=== PATIENT | female | born 2000 | race Two or more races ===

== ENCOUNTER 2019-03-27 16:59 | Emergency (ER) | payer SELFPAY ==
[~2019-03-27] VITALS: Ht 152.4 cm; Wt 49.0 kg
--- NOTE | 2019-03-27 17:15 | NUR ---
Pt ambulatory to ED from home accomp by . sent by to r/o ectopic . Pos test Sat. cramping 2 weeks. no spotting. last period end of January. +breast tenderness. G1PO. no pmhx. cramps come and go. denies pain at this moment. given call [facility]. awaiting md.
[2019-03-27 17:40] LABS: BASOPHILS # (AUTO) 0.01 x10^3/uL (0-0.3); BASOPHILS % (AUTO) 0 % (0-1); EOSINOPHILS % (AUTO) 2 % (1-7); LYMPHOCYTES # (AUTO) 2.04 x10^3/uL (1-6.1); LYMPHOCYTES % (AUTO) 29 % (22-44); MD NO; MEAN CORPUSCULAR HEMOGLOBIN 28.9 pg (27.0-34.8); MEAN CORPUSCULAR HGB CONC 32.7 g/dL (32.4-35.8); MEAN CORPUSCULAR VOLUME 88.4 fL (80-100); MEAN PLATELET VOLUME 7.9 fL (7.4-10.4); MONOCYTES % (AUTO) 9 % (2-9); NEUTROPHILS # (AUTO) 4.26 x10^3/uL (1.8-8.0); NEUTROPHILS % (AUTO) 61 % (42-75); PLATELET COUNT 307 x10^3/uL (130-400); RED BLOOD COUNT 4.44 x10^6/uL (3.82-5.3); RED CELL DISTRIBUTION WIDTH 13.7 % (9.6-15.2)
[2019-03-27 17:46] LABS: MICROSCOPIC NOT IND
[2019-03-27 17:49] LABS: CULTURE INDICATED? NO
[2019-03-27 17:53] LABS: ANION GAP 3 mmol/L (5-15); CALCIUM 9.1 mg/dL (8.5-10.1); CHLORIDE 107 mmol/L (98-107); CREATININE 0.69 mg/dL (0.55-1.02)
[2019-03-27 18:25] VITALS: BP 95/55
--- NOTE | 2019-03-27 18:25 | NUR ---
pt back from us. vss. no complaints at this time. awaiting resutls. call [facility] in reach.
== END 2019-03-27 19:04 | disposition home or self-care (01) ==
LOC: ED 18:58
DX: O26.891 Other specified pregnancy related conditions, first trimester (principal); R10.30 Lower abdominal pain, unspecified; Z3A.01 Less than 8 weeks gestation of pregnancy
CPT/HCPCS: 36415; 76801; 80048; 81003; 82040; 84702; 85025; 86901; 99284

== ENCOUNTER 2019-04-01 14:15 | Emergency (ER) | payer SELFPAY ==
[~2019-04-01] VITALS: Ht 160 cm; Wt 50.6 kg
--- NOTE | 2019-04-01 14:39 | NUR ---
PT AMBULATORY TO ROOM 1. PT STATES SHE HAD HER LMP AT THE END OF JANUARY AND HAS NOT HAD PERIOD SINCE. PT STATES SHE HAS NOT HAD VB BUT DID HAVE CRAMPING. CAME TO ED AT 4 WEEKS AND WAS TOLD SHE WAS TOO EARLY TO SEE ANYTHING ON US. PT STATES SHE HAD POSITIVE TEST. WAS TOLD TO COME BACK TO ASSESS FOR VIABLE VS ECTOPIC. PT RESTING ON GURNEY. NADN. MONITORS APPLIED. WARM BLANKET PROVIDED.
--- NOTE | 2019-04-01 14:49 | NUR ---
PT RESTING ON GURNEY. NADN. AMAYA.
--- NOTE | 2019-04-01 15:10 | NUR ---
PT TAKEN FOR US IN STABLE CONDITION.
--- NOTE | 2019-04-01 15:56 | NUR ---
PT CHART REVIEWED AND PLACED FOR RECHECK.
[2019-04-01 15:59] VITALS: BP 106/48
--- NOTE | 2019-04-01 16:00 | NUR ---
PT RESTING ON GURNEY. NADN. AMAYA.
== END 2019-04-01 16:34 | disposition left against medical advice (07) ==
LOC: ED 15:30
DX: Z32.01 Encounter for pregnancy test, result positive (principal)
CPT/HCPCS: 36415; 76801; 84702; 99284

== ENCOUNTER 2019-04-16 21:37 | Emergency (ER) | payer OTHER ==
[~2019-04-16] VITALS: Ht 154.9 cm; Wt 51.4 kg
[2019-04-16 22:29] LABS: MICROSCOPIC AUTO
[2019-04-16 22:30] LABS: CULTURE INDICATED? YES
[2019-04-16 22:30] LABS: BASOPHILS # (AUTO) 0.06 x10^3/uL (0-0.3); BASOPHILS % (AUTO) 1 % (0-1); EOSINOPHILS # (AUTO) 0.11 x10^3/uL (0-0.8); EOSINOPHILS % (AUTO) 1 % (1-7); LYMPHOCYTES # (AUTO) 2.31 x10^3/uL (1-6.1); LYMPHOCYTES % (AUTO) 26 % (22-44); MD NO; MEAN CORPUSCULAR HGB CONC 32.4 g/dL (32.4-35.8); MEAN CORPUSCULAR VOLUME 89.6 fL (80-100); MEAN PLATELET VOLUME 8.1 fL (7.4-10.4); MONOCYTES # (AUTO) 0.74 x10^3/uL (0-1.4); MONOCYTES % (AUTO) 8 % (2-9); NEUTROPHILS % (AUTO) 64 % (42-75); PLATELET COUNT 299 x10^3/uL (130-400); RED BLOOD COUNT 4.14 x10^6/uL (3.82-5.3); RED CELL DISTRIBUTION WIDTH 13.3 % (9.6-15.2)
[2019-04-16 22:44] LABS: ALANINE AMINOTRANSFERASE 30 U/L (12-78); ALBUMIN 3.3 g/dL (3.4-5.0); ANION GAP 5 mmol/L (5-15); CALCIUM 8.4 mg/dL (8.5-10.1); CHLORIDE 108 mmol/L (98-107); CREATININE 0.62 mg/dL (0.55-1.02)
--- NOTE | 2019-04-16 22:52 | NUR ---
PT C/O RLQ PAIN AND BLOOD IN URINE. PT DENIES ANY OTHER C/O. PT 14 WEEKS , UNKNOWN TO PT. US SHERINE, LABS DRAWN. FAMILY AT FOR SUPPORT. PT CONNECTED TO MONITORING, CALL LIGHT WITHIN REACH.
[2019-04-16 23:01] LABS: ALKALINE PHOSPHATASE 47 U/L (45-117); BILIRUBIN,TOTAL 0.3 mg/dL (0.2-1.0); TOTAL PROTEIN 6.8 g/dL (6.4-8.2)
--- NOTE | 2019-04-17 00:10 | NUR ---
AMEND: PT 7 WEEKS .
[2019-04-17 00:17] VITALS: BP 95/44
== END 2019-04-17 00:19 | disposition home or self-care (01) ==
LOC: ED 22:39
DX: O46.91 Antepartum hemorrhage, unspecified, first trimester (principal); Z3A.01 Less than 8 weeks gestation of pregnancy
CPT/HCPCS: 36415; 76801; 80053; 81001; 83690; 84702; 85025; 86901; 87086; 99284

== ENCOUNTER 2019-11-22 11:32 | Outpatient (CLI) | payer MEDICAID ==
[~2019-11-22] VITALS: Ht 172.7 cm; Wt 61.2 kg
[2019-11-22 11:53] VITALS: BP 106/62
[2019-11-22 12:58] LABS: MICROSCOPIC INDICATED
[2019-11-22] MEDS ORDERED: OMEPRAZOLE 20 MG CAPSULE.DR PO ONE (13:00)
== END 2019-11-22 14:05 | disposition home or self-care (01) ==
LOC: LDOP 11:32
PROVIDERS: ATTEND Obstetrics & Gynecology
DX: O26.893 Other specified pregnancy related conditions, third trimester (principal); R10.9 Unspecified abdominal pain; Z3A.39 39 weeks gestation of pregnancy
CPT/HCPCS: 59025; 81001; 87086

== ENCOUNTER 2019-11-25 14:06 | Outpatient (CLI) | payer MEDICAID ==
[~2019-11-25] VITALS: Ht 152.4 cm; Wt 64.0 kg
== END 2019-11-25 15:48 | disposition home or self-care (01) ==
LOC: LDOP 14:06
PROVIDERS: ATTEND Obstetrics & Gynecology
DX: R10.9 Unspecified abdominal pain (principal)
CPT/HCPCS: 59025

== ENCOUNTER 2019-11-25 23:40 | Inpatient (IN) | payer MEDICAID ==
[~2019-11-25] VITALS: Ht 152.4 cm; Wt 70.0 kg
[2019-11-25] MEDS ORDERED: D5%-LACTATED RINGERS 1,000 ML IV SCH (23:54)
[2019-11-25] MEDS ORDERED: OXYTOCIN 30U/ 0.9% NaCL 500ML 500 ML IV ONE (23:54)
[2019-11-26] MEDS ORDERED: FENTANYL PF 100 MCG/2ML IV PRN
[2019-11-26] MEDS ORDERED: TERBUTALINE 1 MG/ML, 1ML SQ PRN
[2019-11-26] MEDS ORDERED: ONDANSETRON 2MG/ML, 2ML IVPush PRN
[2019-11-26] MEDS ORDERED: CALCIUM CARBONATE 500 MG TAB.CHEW PO PRN
[2019-11-26] MEDS ORDERED: TERBUTALINE 1 MG/ML, 1ML IVPush PRN
[2019-11-26] MEDS ORDERED: LIDOCAINE 1%, 20ML ONE (00:06)
[2019-11-26] MEDS ORDERED: NEWBORN KIT ONE (00:06)
[2019-11-26] MEDS ORDERED: MISOPROSTOL 200 MCG TABLET ONE (00:06)
[2019-11-26] MEDS ORDERED: OXYTOCIN 30U/ 0.9% NaCL 500ML 500 ML ONE ×3 (00:06→06:33)
[2019-11-26 00:22] LABS: BASOPHILS % (AUTO) 0 % (0-1); EOSINOPHILS # (AUTO) 0.03 x10^3/uL (0-0.4); EOSINOPHILS % (AUTO) 0 % (1-7); LYMPHOCYTES # (AUTO) 1.41 x10^3/uL (1-3.4); LYMPHOCYTES % (AUTO) 11 % (22-44); MD NO; MEAN CORPUSCULAR HGB CONC 32.2 g/dL (32.4-35.8); MEAN CORPUSCULAR VOLUME 77.6 fL (80-100); MEAN PLATELET VOLUME 7.9 fL (7.4-10.4); MONOCYTES # (AUTO) 0.72 x10^3/uL (0.2-0.8); MONOCYTES % (AUTO) 5 % (2-9); NEUTROPHILS # (AUTO) 11.01 x10^3/uL (1.8-6.8); NEUTROPHILS % (AUTO) 84 % (42-75); PLATELET COUNT 340 x10^3/uL (130-400); RED BLOOD COUNT 4.14 x10^6/uL (3.82-5.3); RED CELL DISTRIBUTION WIDTH 14.5 % (9.6-15.2)
[2019-11-26] MEDS ORDERED: FENTANYL PF 100 MCG/2ML ONE ×4 (01:24→05:59)
[2019-11-26] MEDS: FENTANYL PF 100 MCG/2ML IVPush PRN ×4 (01:26→06:02)
[2019-11-26] MEDS: LACTATED RINGERS 1,000 ML IV SCH ×2 (02:16)
[2019-11-26] MEDS ORDERED: IBUPROFEN 800 MG TABLET ONE (06:25)
[2019-11-26] MEDS: IBUPROFEN 800 MG TABLET PO PRN ×2 (06:32→21:00)
[2019-11-26] MEDS: OXYTOCIN 30U/ 0.9% NaCL 500ML 500 ML IV SCH ×2 (06:41→16:41)
[2019-11-26] MEDS ORDERED: ONDANSETRON 2MG/ML, 2ML IV PRN (07:00)
[2019-11-26] MEDS ORDERED: GLYCERIN ADULT SUPP PR PRN (07:00)
[2019-11-26] MEDS ORDERED: METHYLERGONOVINE 0.2 MG/ML IM PRN (07:00)
[2019-11-26] MEDS ORDERED: MISOPROSTOL 200 MCG TABLET PR PRN (07:00)
[2019-11-26] MEDS ORDERED: BISACODYL 10 MG SUPP PR PRN (07:00)
[2019-11-26] MEDS ORDERED: SIMETHICONE 80 MG CHEW TAB PO PRN (07:00)
[2019-11-26] MEDS ORDERED: HYDROcodone/APAP 5/325 TABLET ONE (07:50)
[2019-11-26] MEDS: PRENATAL VIT/IRON/FA 1 EACH TABLET PO SCH (09:00)
[2019-11-26 10:00] VITALS: BP_SYST 102; BP_SYST 92; BP_DIAS 52; BP_DIAS 66
[2019-11-26] MEDS: HYDROcodone/APAP 5/325 TABLET PO PRN ×2 (13:39→21:01)
[2019-11-26 13:58] LABS: MEAN CORPUSCULAR HEMOGLOBIN 25.2 pg (27.0-34.8); MEAN CORPUSCULAR HGB CONC 32.3 g/dL (32.4-35.8); MEAN PLATELET VOLUME 7.8 fL (7.4-10.4); PLATELET COUNT 299 x10^3/uL (130-400); RED CELL DISTRIBUTION WIDTH 14.9 % (9.6-15.2)
[2019-11-26 14:18] LABS: MD YES
[2019-11-26 14:23] LABS: BAND#(MANUAL) 1.04 x10^3/uL; BANDS%(MANUAL) 7 % (0-7); LYMPH#(MANUAL) 1.19 x10^3/uL (1-3.4); LYMPHS% (MANUAL) 8 % (22-44); METAMYELOCYTES% (MANUAL) 2 % (0-1); MONOS#(MANUAL) 1.04 x10^3/uL (0.3-2.7); MONOS% (MANUAL) 7 % (2-9); SEG#(MANUAL) 11.32 x10^3/uL (1.8-6.8); SEGS% (MANUAL) 76 % (42-75)
[2019-11-26 14:24] LABS: MICROCYTOSIS 1+; OVALOCYTES 1+; POLYCHROMASIA 1+
[2019-11-26 14:25] LABS: <PLATELET ESTIMATE> ADEQUATE; <PLT MORPHOLOGY> NORMAL PLT MORPH
[2019-11-26 16:13] VITALS: BP 101/64
[2019-11-26 20:45] VITALS: BP 92/59
[2019-11-26] MEDS: DOCUSATE 100 MG CAPSULE PO PRN (21:00)
[2019-11-27 00:10] VITALS: BP 91/60
[2019-11-27] MEDS: OXYTOCIN 30U/ 0.9% NaCL 500ML 500 ML IV SCH (02:41)
[2019-11-27 04:30] VITALS: BP 91/60
[2019-11-27] MEDS: IBUPROFEN 800 MG TABLET PO PRN (05:08)
[2019-11-27 07:42] VITALS: BP 86/52
[2019-11-27] MEDS: DOCUSATE 100 MG CAPSULE PO PRN (11:40)
[2019-11-27] MEDS: HYDROcodone/APAP 5/325 TABLET PO PRN (11:40)
[2019-11-27] MEDS: PRENATAL VIT/IRON/FA 1 EACH TABLET PO SCH (11:40)
[2019-11-27] MEDS ORDERED: IBUP-1222 PO (17:15)
[2019-11-27] MEDS ORDERED: FERR-46 PO (17:16)
== END 2019-11-27 18:20 | disposition home or self-care (01) | DRG 807 ==
LOC: LDOP 23:40 → LDIP 23:56 → 2NW 11-26 09:38
PROVIDERS: ADMIT Obstetrics & Gynecology; ATTEND Obstetrics & Gynecology
PROC: 10E0XZZ Delivery of Products of Conception, External Approach (ICD-10-PCS; principal; 2019-11-26)
PROC: 0KQM0ZZ Repair Perineum Muscle, Open Approach (ICD-10-PCS; 2019-11-26)
DX: O99.02 Anemia complicating childbirth (principal); Z37.0 Single live birth; D64.9 Anemia, unspecified; O70.1 Second degree perineal laceration during delivery; Z3A.38 38 weeks gestation of pregnancy
CPT/HCPCS: 36415; 87806; J7121; 59025; 85025; 86592; 86850; 86900; G0378; J3010; G0475; J2590; J7120

== ENCOUNTER 2020-09-10 21:10 | Emergency (ER) | payer MEDICAID ==
[~2020-09-10] VITALS: Ht 152.4 cm; Wt 57.6 kg
[~2020-09-10 21:10] MED LIST: FERR-46 PO; IBUP-1222 PO
--- NOTE | 2020-09-10 23:43 | NUR ---
PT C/O OF PAIN IN HER RIGHTS CHEST AND UNDER HER BREAST WHEN SHE BREATHES. ATTACHED TO MONITORS. VSS. PT IN NAD. PT AMBULATORY. UNDERSTANDS D/C INSTRUCTIONS WITH NO FURTHER QUESTIONS.
[2020-09-10 23:45] VITALS: BP 111/78
== END 2020-09-10 23:49 | disposition home or self-care (01) ==
LOC: ED 21:40
DX: R07.89 Other chest pain (principal); R94.31 Abnormal electrocardiogram [ECG] [EKG]
CPT/HCPCS: 36415; 71045; 85379; 93005; 99285